=== PATIENT | female | born 1995 | race Caucasian/White ===

== ENCOUNTER 2024-04-02 04:10 | Emergency (ER) | payer BC, SELFPAY ==
[2024-04-02] MEDS ORDERED: FENTANYL CITR 100 MCG/2 ML ONE (04:43)
[2024-04-02] MEDS ORDERED: ONDANSETRON 4 MG/2 ML VIAL ONE (04:43)
[2024-04-02] MEDS ORDERED: KETOROLAC 30 MG/ML INJ ONE (04:43)
[2024-04-02] MEDS ORDERED: FAMOTIDINE 20 MG/2 ML VIAL IV ONE (04:44)
[2024-04-02] MEDS ORDERED: NA CHLORIDE 0.9% 1,000 ML ONE (04:44)
[2024-04-02 04:50] LABS: Absolute Lymphocytes (CBC) 1.5 K/uL (0.7-4.9); Absolute Monocytes 0.8 K/uL (0.1-1.3); Absolute Neutrophil 10.9 K/uL (1.8-8.0); Basophils % 0.3 % (0-1.3); Eosinophils % 0.3 % (0-4.4); Hemoglobin 13.2 g/dL (12.0-15.0); MCH 29.2 pg (27.0-35.0); MCHC 32.1 g/dL (32.0-36.0); MCV 91.1 fL (80-100); MPV 8.6 fL (7.6-11.3); Monocytes % 6.2 % (3.3-12.3); Neutrophils % 82.2 % (41.7-73.7); Platelets 305 thou/uL (152-406); Red Cell Distribution Width 13.1 % (12.1-15.2)
[2024-04-02 05:06] LABS: Albumin 3.8 g/dL (3.4-5.0); Anion Gap 8.3 mEq/L (5.0-15.0); Bilirubin Total 0.4 mg/dL (0.2-1.0); Globulin 3.7 g/dL (2.3-3.5); Potassium 3.3 mEq/L (3.5-5.1); Protein, Total 7.5 g/dL (6.4-8.2)
[2024-04-02 05:32] LABS: Specific Gravity >= 1.030 (1.005-1.030); Urine Bilirubin 1+ (Negative); Urine Blood 3+ (Negative); Urine Clarity Clear (Clear); Urine Color Yellow (Yellow); Urine Glucose Negative (Negative); Urine Ketones 4+ (Negative); Urine Nitrite Negative (Negative); Urine Protein 2+ (Negative); Urine Urobilinogen 0.2 mg/dL (0.2-1.0); Urine pH 5.5 (5.0-7.0)
[2024-04-02 05:32] LABS: Specific Gravity > 1.030 (1.005-1.030)
[2024-04-02 05:33] LABS: Urine Microscopic Reflex YN ORDER UMIC
[2024-04-02 05:36] LABS: Sqamous Epithelial <5 /HPF (None Seen); Urine Bacteria <20 /HPF (<20); Urine Culture Reflex Order NOT NEEDED; Urine RBC >50 /HPF (None Seen); Urine WBC <5 /HPF (<5)
--- NOTE | 2024-04-02 06:30 | RAD REPORT ---
EXAM: CT Abdomen and Pelvis With Intravenous Contrast CLINICAL HISTORY: The patient is 28 years old and is Female; Abdominal pain. TECHNIQUE: Axial computed tomography images of the abdomen and pelvis with intravenous contrast. Sagittal and coronal reformatted images were created and reviewed. This CT exam was performed using one or more of the following dose reduction techniques: automated exposure control, adjustmen t of the mA and/or kV according to patient size, and/or use of iterative reconstruction technique. COMPARISON: No relevant prior studies available. FINDINGS: Lung bases: Unremarkable. No mass. No consolidation. ABDOMEN: Liver: Unremarkable. No mass. Gallbladder and bile ducts: Unremarkable. No calcified stones. No ductal dilation. Pancreas: No findings to suggest acute pancreatitis. No mass visualized. No ductal dilation. Spleen: Unremarkable. No splenomegaly. Adrenals: Unremarkable. No mass. Kidneys and ureters: Unremarkable. No solid mass. No hydronephrosis. Stomach and bowel: Unremarkable. No obstruction. No mucosal thickening. PELVIS: Appendix: No findings to suggest acute appendicitis. Bladder: Unremarkable. No mass. Reproductive: Fluid in the vaginal canal. Endometrial thickening in the lower uterine segment. No adnexal mass. ABDOMEN and PELVIS: Intraperitoneal space: Small amount of free fluid in the cul-de-sac. No free air. Bones/joints: Mild loss of height at T11 and T12 vertebral bodies with superior endplate Schmorl' s nodes, chronic in appearance. No significant arthropathy in the hips. No acute fracture visualized in the pelvis or proxima l femora. No dislocation. Soft tissues: Left flank subcutaneous edema suggesting contusion. Vasculature: Unremarkable. No abdominal aortic aneurysm. Lymph nodes: No pathologically enlarged lymph nodes. IMPRESSION: 1. Left flank subcutaneous edema suggesting contusion. Clinical correlation suggested. 2. Fluid in the vaginal canal. Endometrial thickening in the lower uterine segment. Pelvis ultrasou nd is pending. Electronically signed by: Sonali Staley MD 04/02/2024 06:26 AM [facility] [place] Due to temporary technical issues with the PACS/[employer]mn[employer] reporting system, reports are being otis d by the in-house radiologist without review as a courtesy to ensure prompt reporting the interpreting radiologist is fully responsible for the content of the report. Transcribed Date/Time: 04/02/2024 6:30 AM
--- NOTE | 2024-04-02 06:53 | RAD REPORT ---
EXAM: US Pelvis Transabdominal, Complete and US Duplex Arterial/Venous of the Pelvis, Complete CLINICAL HISTORY: The patient is 28 years old and is Female; Abdominal pain. LMP April 02, 2024 TECHNIQUE: Real-time complete transabdominal pelvic ultrasound with image documentation. Real-ti me duplex ultrasound scan of the arterial and venous flow of the pelvis with color Doppler flow and spectral waveform analysis. COMPARISON: CT Abdomen Pelvis 04/02/2024, 05:54:49 AM. FINDINGS: Uterus/cervix: Uterus is 8.8 x 3.5 x 4.5 cm. Limited evaluation of the lower uterine segment. Normal endometrial stripe thickness, 5.3 mm at the fundus. No myometrial mass. Right ovary: Right ovary 3.0 x 1.6 x 1.8 cm. No torsion. Left ovary: Left ovary 3.4 x 2.1 x 2.6 cm. No torsion. Free fluid: Trace free fluid in the cul-de-sac. Bladder: Bladder is nondistended. IMPRESSION: No acute findings in the pelvis. Electronically signed by: Sonali Staley MD 04/02/2024 06:49 AM [facility] [place] Due to temporary technical issues with the PACS/i-[employer] reporting system, reports are being otis d by the in-house radiologist without review as a courtesy to ensure prompt reporting the interpreting radiologist is fully responsible for the content of the report. Transcribed Date/Time: 04/02/2024 6:53 AM
--- NOTE | 2024-04-02 07:10 | EDPHYS ---
Physician Documentation [facility] Name: Lauren Aguilar Age: 28 yrs Sex: Female : 1995 Arrival Date: 04/02/2024 Time: 04:10 Bed 8 Private MD: ED Physician Pepe Lala HPI: 04/02 04:24 This 28 yrs old Female presents to ER via Unassigned with complaints of sp4 Abdominal Cramping, Abdominal Pain, Nausea/Vomiting. 04/03 03:38 28-year-old female presents for complaint of abdominal pain nausea and vomiting.. 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 - Infectious Disease History:: Denies. - Social history:: Smoking status: Patient denies any tobacco usage or history of. - Family history:: not pertinent. ROS: 04/03 03:38 Constitutional: Negative for fever, chills, and weight loss, Abdomen/GI: Positive sp4 abdominal pain nausea and vomiting All other systems are negative, Exam: 03:38 Constitutional: This is a well developed, well nourished patient who is awake, alert, sp4 and in no acute distress. Head/Face: Normocephalic, atraumatic. Eyes: Pupils equal round and reactive to light, extra-ocular motions intact. Lids and lashes normal. Conjunctiva and sclera are not injected. Cornea within normal limits. Periorbital areas with no swelling, redness, or edema. ENT: Nares patent. No nasal discharge, no septal abnormalities noted. Tympanic membranes are normal and external auditory canals are clear. Oropharynx with no redness, swelling, or masses, exudates, or evidence of obstruction, uvula midline. Mucous membranes moist. Neck: Trachea midline, no thyromegaly or masses palpated, and no cervical lymphadenopathy. Supple, full range of motion without nuchal rigidity, or vertebral point tenderness. Chest/axilla: Normal chest wall appearance and motion. Nontender with no deformity. No lesions are appreciated. Cardiovascular: Regular rate and rhythm with a normal S1 and S2. No gallops, murmurs, or rubs. Normal PMI, no JVD. No pulse deficits. Respiratory: Lungs have equal breath sounds bilaterally, clear to auscultation and percussion. No rales, rhonchi or wheezes noted. No increased work of breathing, no retractions or nasal flaring. Abdomen/GI: Soft, with normal bowel sounds. No distension or tympany. No guarding or rebound. No evidence of tenderness throughout. Back: No spinal tenderness. No costovertebral tenderness. Skin: Warm, dry with normal turgor. Normal color with no rashes, no lesions, and no evidence of cellulitis. MS/ Extremity: Pulses equal, no cyanosis. Neurovascular intact. Full, normal range of motion. Neuro: Awake and alert, GCS 15, oriented to person, place, time, and situation. Cranial nerves II-XII grossly intact. Motor strength 5/5 in all extremities. Sensory grossly intact. Psych: Awake, alert, with orientation to person, place and time. Behavior, mood, and affect are within normal limits Vital Signs: 04/02 04:18 BP 140 / 89; Pulse 92; Resp 17 S; Temp 97.2(T); Pulse Ox 98% on R/A; Weight 52.16 kg; ha1 Height 4 ft. 6 in. ; Pain 10/10; 05:04 BP 134 / 92; Pulse 70; Resp 18; Pulse Ox 99% on R/A; br2 05:37 BP 103 / 68; Pulse 63; Resp 18 S; Pulse Ox 99% on R/A; br2 07:08 BP 115 / 78; Pulse 91; Resp 18 S; Pulse Ox 93% on R/A; br2 04:18 Body Mass Index 26.73 (52.16 kg, 139.7 cm) ha1 04:18 Pain Scale: Adult ha1 Jose Coma Score: 04/03 03:38 Eye Response: spontaneous(4). Motor Response: obeys commands(6). Verbal Response: sp4 oriented(5). Total: 15. MDM: 04/02 04:27 Medical Screening Exam initiated sp4 04/03 03:38 Differential diagnosis: STD, ectopic . Data reviewed: vital signs, nurses sp4 notes, old medical records, lab test result(s), radiologic studies, CT scan, ultrasound. 03:40 ED course: EXAM: CTAbdomen and Pelvis With Intravenous Contrast CLINICAL HISTORY: The sp4 patient is 28 years old and is Female; Abdominal pain. TECHNIQUE: Axial computed tomography images of the abdomen and pelvis with intravenous contrast. Sagittal and coronal reformatted images were created and reviewed. This CT exam was performed using one or more of the following dose reduction techniques: automated exposure control, adjustment of the mA and/or kV according to patient size, and/or use of iterative reconstruction technique. COMPARISON: No relevant prior studies available. FINDINGS: Lung bases: Unremarkable. No mass. No consolidation. ABDOMEN: Liver: Unremarkable. No mass. Gallbladder and bile ducts: Unremarkable. No calcified stones. No ductal dilation. Pancreas: No findings to suggest acute pancreatitis. No mass visualized. No ductal dilation. Spleen: Unremarkable. No splenomegaly. Adrenals: Unremarkable. No mass. Kidneys and ureters: Unremarkable. No solid mass. No hydronephrosis. Stomach and bowel: Unremarkable. No obstruction. No mucosal thickening. PELVIS: Appendix: No findings to suggest acute appendicitis. Bladder: Unremarkable. No mass. Reproductive: Fluid in the vaginal canal. Endometrial thickening in the lower uterine segment. No adnexal mass. ABDOMEN and PELVIS: Intraperitoneal space: Small amount of free fluid in the cul-de-sac. No free air. Bones/joints: Mild loss of height at T11 and T12 vertebral bodies with superior endplate Schmorl's nodes, chronic in appearance. No significant arthropathy in the hips. No acute fracture visualized in the pelvis or proximal femora. No dislocation. Soft tissues: Left flank subcutaneous edema suggesting contusion. Vasculature: Unremarkable. No abdominal aortic aneurysm. Lymph nodes: No pathologically enlarged lymph nodes. IMPRESSION: 1. Left flank subcutaneous edema suggesting contusion. Clinical correlation suggested. 2. Fluid in the vaginal canal. Endometrial thickening in the lower uterine segment. Pelvis ultrasound is pending. Electronically signed by: Sonali Staley MD 04/02/2024 06:26 . ED course: EXAM: US Pelvis Transabdominal, Complete and US DuplexArterial/Venous of the Pelvis, Complete CLINICAL HISTORY: The patient is 28 years old and is Female; Abdominal pain. LMP April 02, 2024 TECHNIQUE: Real-time complete transabdominal pelvic ultrasound with image documentation. Realtime duplex ultrasound scan of the arterial and venous flow of the pelvis with color Doppler flow and spectral waveform analysis. COMPARISON: CTAbdomen Pelvis 04/02/2024, 05:54:49 AM. FINDINGS: Uterus/cervix: Uterus is 8.8 x 3.5 x 4.5 cm. Limited evaluation of the lower uterine segment. Normal endometrial stripe thickness, 5.3 mm at the fundus. No myometrial mass. Right ovary: Right ovary 3.0 x 1.6 x 1.8 cm. No torsion. Left ovary: Left ovary 3.4 x 2.1 x 2.6 cm. No torsion. Free fluid: Trace free fluid in the cul-de-sac. Bladder: Bladder is nondistended. IMPRESSION: No acute findings in the pelvis. Electronically signed by: Sonali Staley MD 04/02/2024 06:49 AM . 04/02 04:33 Order name: CBC with Diff; Complete Time: 06:54 sp4 04/02 04:33 Order name: CMP; Complete Time: 06:54 sp4 04/02 04:33 Order name: Lipase; Complete Time: 06:54 sp4 04/02 04:33 Order name: Test, Urine; Complete Time: 06:54 sp4 04/02 05:32 Order name: Urinalysis w/ reflexes; Complete Time: 06:54 EDMS 04/02 04:33 Order name: CT Abd/Pelvis - IV Contrast Only sp4 04/02 04:34 Order name: US Pelvis Complete sp4 04/02 04:33 Order name: IV Saline Lock; Complete Time: 06:39 sp4 04/02 04:33 Order name: Labs collected and sent; Complete Time: 06:39 sp4 04/02 04:35 Order name: Pelvic Exam Setup; Complete Time: 06:39 sp4 Administered Medications: 04/02 05:00 Drug: Famotidine IVP 20 mg IVP once; dilute with 10 mL 0.9% NaCl; give over 2 minutes br2 Route: IVP; Site: right antecubital; 07:06 Follow up: Response: No adverse reaction br2 05:00 Drug: Ondansetron IVP 4 mg IVP once; over 2 minutes Route: IVP; Site: right antecubital;br2 07:06 Follow up: Response: No adverse reaction br2 05:00 Drug: NS 0.9% IV 1000 ml IV at 1 bolus Per protocol; to be given as a bolus over 60 br2 minutes Route: IV; Rate: 1 bolus; Site: right antecubital; 07:06 Follow up: Response: No adverse reaction; IV Status: Completed infusion; IV Intake: br2 1000ml 05:00 Drug: fentaNYL (PF) IVP 50 mcg IVP once Route: IVP; Site: right antecubital; br2 07:06 Follow up: Response: No adverse reaction br2 05:16 Drug: TORadol - Ketorolac IVP 30 mg IVP once Route: IVP; Site: right antecubital; br2 07:05 Follow up: Response: No adverse reaction br2 Disposition: 04/03 03:42 Chart complete. sp4 Disposition Summary: 04/02/24 07:10 Discharge Ordered Notes: Location: Home sp4 Problem: new sp4 Symptoms: have improved sp4 Condition: Stable sp4 Diagnosis - Dysmenorrhea, Acute pelvic pain in female sp4 Followup: sp4 - With: Private Physician - When: 7 - 10 days - Reason: Recheck today's complaints Discharge Instructions: - Discharge Summary Sheet sp4 - Dysmenorrhea, [id number]-Ntwi sp4 Forms: - Patient Portal Instructions sp4 Prescriptions: - Tramadol 50 mg Oral tablet - take 1 tablet ORAL route every 8 hours as needed; 20 tablet; Refills: 0, sp4 Product Selection Permitted - promethazine 25 mg Oral Tablet - take 1 tablet ORAL route every 6 hours As needed; 20 tablet; Refills: 0, sp4 Product Selection Permitted Signatures: Dispatcher [employer] Renae Giron RN RN ha1 Pepe Lala MD MD sp4 Cammy Harris RN RN br2 Corrections: (The following items were deleted from the chart) 04/02 04:33 04:33 CBC+H.LAB.BRZ ordered. EDMS EDMS 04:33 04:33 COMPREHENSIVE METABOLIC PANEL+C.LAB.BRZ ordered. EDMS EDMS 04:33 04:33 LIPASE+C.LAB.BRZ ordered. EDMS EDMS 04:33 04:33 Test, Urine+UC.LAB.BRZ ordered. EDMS EDMS 04:33 04:33 Abdomen Pelvis W Con+CT.RAD.BRZ ordered. EDMS EDMS 05:39 04:33 Urinalysis+U.LAB.BRZ ordered. EDMS EDMS
--- NOTE | 2024-04-02 07:10 | ER ---
Nurse's Notes [facility] Name: Lauren Aguilar Age: 28 yrs Sex: Female : 1995 Arrival Date: 04/02/2024 Time: 04:10 Bed 8 Private MD: Diagnosis: Dysmenorrhea, Acute pelvic pain in female Presentation: 04/02 04:18 Chief complaint: Patient states: LOWER ABDOMINAL PAIN RADIATES TO BACK. NAUSEA AND ha1 VOMITING. 04:18 Coronavirus screen: Client denies travel out of the [place] in the last 14 days. Ebola ha1 Screen: No symptoms or risks identified at this time. Initial Sepsis Screen: Does the patient meet any 2 criteria? No. Patient's initial sepsis screen is negative. Does the patient have a suspected source of infection? No. Patient's initial sepsis screen is negative. Risk Assessment: Do you want to hurt yourself or someone else? Patient reports no desire to harm self or others. Onset of symptoms was April 02, 2024. 04:18 Method Of Arrival: Ambulatory ha1 04:18 Acuity: PAUL 3 ha1 Triage Assessment: 04:18 General: Appears uncomfortable, Behavior is cooperative. Pain: Complains of pain in ha1 pelvis Pain radiates to back Pain currently is 10 out of 10 on a pain scale. Quality of pain is described as throbbing. Neuro: Level of Consciousness is awake, alert, obeys commands, Oriented to person, place, time, situation. Cardiovascular: Capillary refill < 3 seconds Patient's skin is warm and dry. Respiratory: Airway is patent Respiratory effort is even, unlabored, Respiratory pattern is regular, symmetrical. GI: Abdomen is flat, non-distended, Reports lower abdominal pain, nausea, vomiting. Derm: Skin is pink, warm \T\ dry. 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 - Infectious Disease History:: Denies. - Social history:: Smoking status: Patient denies any tobacco usage or history of. - Family history:: not pertinent. Screenin:22 [facility] ED Fall Risk Assessment (Adult) History of falling in the last 3 months, ko1 including since admission No falls in past 3 months (0 pts) Confusion or Disorientation No (0 pts) Intoxicated or Sedated No (0 pts) Impaired Gait No (0 pts) Mobility Assist Device Used No (0 pt) Altered Elimination No (0 pt) Score/Fall Risk Level 0 - 2 = Low Risk Oriented to surroundings, Maintained a safe environment, Educated pt \T\ family on fall prevention, incl call for assistance when getting out of bed, Assessed \T\ reinforced patient's understanding of fall precautions, Hourly rounding (assess needs \T\ fall precautionary measures) done. Abuse screen: Denies threats or abuse. Denies injuries from another. Nutritional screening: No deficits noted. Tuberculosis screening: No symptoms or risk factors identified. Assessment: 04:30 Reassessment: Patient and/or family updated on plan of care and expected duration. Pain br2 level reassessed. Patient is alert, oriented x 3, equal unlabored respirations, skin warm/dry/pink. General: Appears uncomfortable, Behavior is calm, cooperative. Pain: Complains of pain in right lower quadrant and abdomen diffusely Pain currently is 10 out of 10 on a pain scale. Quality of pain is described as sharp, Pain began 3 hours ago. Neuro: Parnell Agitation-Sedation Scale (RASS): 0 - Alert and Calm. Cardiovascular: Capillary refill < 3 seconds. Respiratory: Respiratory effort is even, unlabored, Respiratory pattern is regular, symmetrical. GI: Bowel sounds present X 4 quads. Abdomen is tender to palpation in right lower quadrant. : No signs and/or symptoms were reported regarding the genitourinary system. EENT: No signs and/or symptoms were reported regarding the EENT system. Derm: No signs and/or symptoms reported regarding the dermatologic system. Musculoskeletal: No signs and/or symptoms reported regarding the musculoskeletal system. 05:37 Reassessment: Patient and/or family updated on plan of care and expected duration. Pain br2 level reassessed. Patient is alert, oriented x 3, equal unlabored respirations, skin warm/dry/pink. Patient states feeling better. Patient states symptoms have improved. 07:12 Reassessment: No changes from previously documented assessment. Patient and/or family br2 updated on plan of care and expected duration. Pain level reassessed. Patient is alert, oriented x 3, equal unlabored respirations, skin warm/dry/pink. Vital Signs: 04:18 BP 140 / 89; Pulse 92; Resp 17 S; Temp 97.2(T); Pulse Ox 98% on R/A; Weight 52.16 kg; ha1 Height 4 ft. 6 in. ; Pain 10/10; 05:04 BP 134 / 92; Pulse 70; Resp 18; Pulse Ox 99% on R/A; br2 05:37 BP 103 / 68; Pulse 63; Resp 18 S; Pulse Ox 99% on R/A; br2 07:08 BP 115 / 78; Pulse 91; Resp 18 S; Pulse Ox 93% on R/A; br2 04:18 Body Mass Index 26.73 (52.16 kg, 139.7 cm) ha1 04:18 Pain Scale: Adult ha1 Dewitt Coma Score: 04/03 03:38 Eye Response: spontaneous(4). Motor Response: obeys commands(6). Verbal Response: sp4 oriented(5). Total: 15. ED Course: 04/02 04:16 Patient arrived in ED. gm2 04:24 Pepe Lala MD is Attending Physician. sp4 04:30 Inserted saline lock: 20 gauge in right antecubital area, using aseptic technique. br2 Blood collected. Flushed with 10 mL NS. 04:30 Patient has correct armband on for positive identification. Bed in low position. Call br2 light in reach. Side rails up X 1. Provided Education on: plan of care. 04:34 Cammy Harris RN is Primary Nurse. br2 04:46 Triage completed. ha1 04:56 Test, Urine Sent. oe 05:51 CT Abd/Pelvis - IV Contrast Only In Process Unspecified. EDMS 06:18 US Pelvis Complete In Process Unspecified. EDMS 07:22 No provider procedures requiring assistance completed. IV discontinued, intact, ko1 bleeding controlled, No redness/swelling at site. Pressure dressing applied. 07:27 Patient placed in an exam room. ko1 Administered Medications: 05:00 Drug: Famotidine IVP 20 mg IVP once; dilute with 10 mL 0.9% NaCl; give over 2 minutes br2 Route: IVP; Site: right antecubital; 07:06 Follow up: Response: No adverse reaction br2 05:00 Drug: Ondansetron IVP 4 mg IVP once; over 2 minutes Route: IVP; Site: right antecubital;br2 07:06 Follow up: Response: No adverse reaction br2 05:00 Drug: NS 0.9% IV 1000 ml IV at 1 bolus Per protocol; to be given as a bolus over 60 br2 minutes Route: IV; Rate: 1 bolus; Site: right antecubital; 07:06 Follow up: Response: No adverse reaction; IV Status: Completed infusion; IV Intake: br2 1000ml 05:00 Drug: fentaNYL (PF) IVP 50 mcg IVP once Route: IVP; Site: right antecubital; br2 07:06 Follow up: Response: No adverse reaction br2 05:16 Drug: TORadol - Ketorolac IVP 30 mg IVP once Route: IVP; Site: right antecubital; br2 07:05 Follow up: Response: No adverse reaction br2 Medication: 07:22 VIS not applicable for this client. ko1 Intake: 07:06 IV: 1000ml; Total: 1000ml. br2 Outcome: 07:10 Discharge ordered by MD. hernandez 07:26 Discharged to home ambulatory, ko1 07:26 Condition: improved 07:26 Discharge instructions given to patient, Instructed on discharge instructions, follow up and referral plans. medication usage, Demonstrated understanding of instructions, follow-up care, medications, Prescriptions given X 2, 07:29 Patient left the ED. ko1 Signatures: Dispatcher [employer] EDMS Marcellus Nesbitt Heidy, RN RN ha1 Tamy Wyatt RN RN ko1 Pepe Lala MD MD sp4 Chana Titus gm2 Cammy Harris RN RN br2 Corrections: (The following items were deleted from the chart) 05:39 04:56 Urinalysis+U.LAB.BRZ drawn and sent. [facility]
[2024-04-02 07:53] VITALS: TEMP 97.2
[2024-04-02 07:56] VITALS: BP 115/78; O2SAT 93
== END 2024-04-02 07:29 | disposition home or self-care (01) ==
LOC: ER 04:10
DX: N94.6 Dysmenorrhea, unspecified (principal)
CPT/HCPCS: 36415; 74177; 76856; 80053; 81001; 81025; 83690; 85025; 96361; 96374; 96375; 99284; J2405; J3010; J7030; Q9967